=== PATIENT | female | born 1955 | race Caucasian/White ===

== ENCOUNTER 2021-12-09 10:46 | Observation (INO) | payer OTHER ==
--- NOTE | 2021-12-04 11:28 | RAD REPORT ---
EXAM DESCRIPTION: RAD - Chest Pa And Lat (2 Views) - 12/04/2021 11:19 am CLINICAL HISTORY: pre op pending knee replacement COMPARISON: No comparisons FINDINGS: Lines: None. Lungs: No evidence of edema or pneumonia. Pleural: No significant pleural effusions or pneumothorax. Cardiac: The heart size is within normal limits. Bones: No acute fractures. Remote right-sided rib fractures . Right shoulder arthroplasty. Other: IMPRESSION: No acute cardiopulmonary disease.
[2021-12-04 11:57] LABS: Absolute Lymphocytes (CBC) 3.2 K/uL (0.7-4.9); Hematocrit 43.8 % (36.0-45.0); Lymphocytes % 35.7 % (15.3-44.8); MCV 89.2 fL (80-100); MPV 7.6 fL (7.6-11.3); RBC Red Blood Cell Count 4.91 M/uL (3.86-4.86)
[2021-12-04 12:13] LABS: Albumin 3.9 g/dL (3.4-5.0); Bilirubin Total 0.3 mg/dL (0.2-1.0); Potassium 3.9 mmol/L (3.5-5.1); Protein, Total 7.7 g/dL (6.4-8.2)
[2021-12-04 12:24] LABS: Urine Bilirubin NEGATIVE (Negative); Urine Blood 2+ (Negative); Urine Clarity Clear (Clear); Urine Color Yellow (Yellow); Urine Glucose Negative (Negative); Urine Protein Negative (Negative); Urine pH 5.5 (5.0-7.0)
[2021-12-04 12:25] LABS: Urine Urobilinogen 0.2 mg/dL (0.2-1.0)
[2021-12-04 12:26] LABS: Urine Bacteria >50 /HPF (<20)
[2021-12-04 12:28] LABS: Protime INR 0.96
--- NOTE | 2021-12-04 14:30 | EKG ---
Test Date: 2021-12-04 Test Time: 11:11:42 Rd Project Manager: RAMIRO MEASUREMENT RESULTS: Intervals: Rate: 73 PA: 164 QRSD: 100 QT: 412 QTc: 453 [place]: P: 68 PA: 164 QRS: -60 T: 93 INTERPRETIVE STATEMENTS: Normal sinus rhythm Left anterior fascicular block Nonspecific ST and T wave abnormality Abnormal ECG No previous ECG available for comparison Electronically Signed On 12-04-21 14:29:48 CDT by Jewel Yates
[2021-12-08 14:04] LABS: SARS-CoV-2 Antigen Rapid Res Negative (Negative)
[2021-12-09] MEDS ORDERED: CEFAZOLIN 2 GM IN 0.9% NACL 2 GM/100 ML BAG ONE (11:00)
[2021-12-09] MEDS ORDERED: Ringers Lactate 1,000 ML IV ONE (11:00)
[2021-12-09] MEDS ORDERED: CELECOXIB 100 MG CAPSULE ONE (11:24)
[2021-12-09] MEDS ORDERED: ACETAMINOPHEN 500 MG TAB ONE (11:25)
[2021-12-09] MEDS ORDERED: Oxycodone HCl/Acetaminophen 1 TAB TAB ONE (11:25)
[2021-12-09] MEDS ORDERED: LIDOCAINE 1% MPF 5 ML VIAL ONE ×2 (12:10→12:48)
[2021-12-09] MEDS ORDERED: BUPIVACAINE 0.25% PF 10 ML VIAL ONE (12:10)
[2021-12-09] MEDS ORDERED: MIDAZOLAM HCL 2 MG/2 ML INJ ONE (12:10)
[2021-12-09] MEDS ORDERED: dexAMETHasone 10 MG/ML VIAL ONE ×2 (12:10→12:52)
[2021-12-09] MEDS ORDERED: FENTANYL CITR 100 MCG/2 ML ONE (12:10)
[2021-12-09] MEDS ORDERED: HYDROMORPHONE HCL 1 MG/ML INJ ONE (12:46)
[2021-12-09] MEDS ORDERED: TRANEXAMIC ACID 1,000 MG/10 ML VIAL IV ONE (12:47)
[2021-12-09] MEDS ORDERED: propofoL 200 MG/20 ML VIAL IV ONE (12:48)
[2021-12-09] MEDS ORDERED: KETAMINE HCL 500 MG/5 ML VIAL ONE (12:52)
[2021-12-09] MEDS ORDERED: KETOROLAC 30 MG/ML INJ ONE (12:52)
[2021-12-09] MEDS ORDERED: ONDANSETRON 4 MG/2 ML VIAL ONE (13:01)
[2021-12-09] MEDS ORDERED: HYDROCODONE/APAP 7.5/325 MG TAB PO PRN (15:22)
[2021-12-09] MEDS ORDERED: ONDANSETRON 4 MG/2 ML VIAL IV PRN (15:22)
[2021-12-09] MEDS ORDERED: DOCUSATE NA 100 MG CAP PO PRN (15:22)
--- NOTE | 2021-12-09 15:29 | P.BOP ---
Preoperative diagnosis: left severe knee djd Postoperative diagnosis: same Primary procedure: left knee TKA Estimated blood loss: 150 Anesthesia: General Complications: None Transferred to: Recovery Room Condition: Good
--- OUTSIDE RECORDS SUMMARY | 2021-12-09 16:05 | XMS REPORT | Continuity of Care Document ---
:1955 Author Organization [facility] t Address [address] [place] [address] Care Team Providers Name Role Phone Carly Owens Attending Clinician Unavailable Gilbert Robertson Attending Clinician Unavailable VALERIO PRIETO Attending Clinician Unavailable VALERIO PRIETO Admitting Clinician Unavailable Payers Payer Name Policy Type Policy Number Effective Date Expiration Date S annia [employer] MEDICARE HMO [id number] 2019 POS PPO 00:00:00 AETNA [facility] [id number] 2019 ACCESS 00:00:00 Problems This patient has no known problems. Allergies, Adverse Reactions, Alerts Allergy Allergy Status Severity Reaction(s) Onset Inactive Treating Comm ents Source Name Type Date Date Clinician NO KNOWN Allergy Active [facility] Medications Ordered Filled Start Stop Current Ordering Indication Dosage Frequency Signature Comments Components Source Medication Medication Date Date Medication? Clinician (SIG) Name Name Gabapentin Gabapentin Yes Qian 1 tablet Common 7-13 Millender as needed Spiri t 00:00: for pain - [facility] 00 [facility] Diclofenac Diclofenac 2020- No Qian 1 tablet Common Sodium Sodium 7-13 04-09 Millender as needed Spirit 00:00: 00:00 for pain; - [facility] 00 :00 take with [facility] Levothyroxi Levothyroxi Yes Qian 1 tablet Common ne Sodium ne Sodium 809 Millender on an Spirit 00:00: empty - [facility] 00 stomach in [facility] Meclizine Meclizine Yes Qian 1 tablet Common HCl HCl 808 Millender as needed Spiri t 00:00: for - [facility] 00 dizziness [facility] Gabapentin Gabapentin Yes Qian 1 tablet Common 4-24 Millender Spirit 00:00: - [facility] 00 [facility] [place] 3 [place] 3 Yes Qian 1 capsule Com mon Millender [facility] Fish Oil Fish Oil Yes Qian (otc) 1 Com mon Millender capsule [facility] Crestor Crestor Yes Qian 1 tablet Comm on Millender in evening Spir it (for high - [facility] cholestero St l/triglyce [facility] Vital Signs Vital Name Observation Time Observation Value Comments Source HEIGHT 2020-04-15 06:55:00 162.6 cm WEIGHT 2020-04-15 06:55:00 117.1 kg HEIGHT 2020-04-12 09:25:00 162.6 cm WEIGHT 2020-04-12 09:25:00 120.657 kg HEIGHT 2020-04-15 06:55:00 162.6 cm WEIGHT 2020-04-15 06:55:00 117.1 kg HEIGHT 2020-04-12 09:25:00 162.6 cm WEIGHT 2020-04-12 09:25:00 120.657 kg Procedures This patient has no known procedures. Encounters Start End Encounter Admission Attending Care Care Encounter Source Date/Time Date/Time Type Type Clinicians Facility Department ID 2021-12-09 Outpatient Carly Owens [facility] [id number] Common 12:13:00 [facility] 2021-09-18 Outpatient Carly Owens [facility] [id number] Common 09:09:00 [facility] 2021-08-25 Outpatient Carly Owens [facility] [id number] Common 11:27:01 [facility] 2021-05-29 Outpatient Carly Owens [facility] [id number] Common 10:35:00 [facility] 2021-05-21 Outpatient Owens, Na STLMLC STLMLC [id number] Common 14:38:51 [facility] 2021-05-21 Outpatient Owens, Na STLMLC STLMLC [id number] Common 14:02:42 [id number] [facility] 2021-05-21 Outpatient Owens, Na STLMLC STLMLC [id number] 2 Common 13:26:06 [id number] [facility] 2021-05-21 Outpatient Owens, Na STLMLC STLMLC [id number] Common 13:18:07 [id number] [facility] 2021-05-21 Outpatient STLMLC STLMLC [id number] Common 13:17:39 [id number] [facility] 2021-05-21 Outpatient STLMLC STLMLC [id number] Common 12:17:54 [id number] [facility] 2021-05-21 Outpatient Marcelo, Kin STLMLC STLMLC [id number] Common 12:06:49 [id number] [facility] 2021-05-21 Outpatient Marcelo, Kin STLMLC STLMLC [id number] Common 12:01:35 [id number] [facility] 2021-05-21 Outpatient Marcelo, Kin STLMLC STLMLC [id number] Common 11:59:51 [id number] [facility] 2021-01-29 Inpatient CONNER, [facility] Surgery [id number] [facility] 05:54:13 VALERIO 2021-12-04 2021-12-04 ambulatory STLMLC STLMLC [id number] Common 00:00:00 00:00:00 [facility] 2021-11-06 2021-11-06 ambulatory STLMLC STLMLC [id number] Common 00:00:00 00:00:00 [facility] 2021-10-22 2021-10-22 ambulatory STLMLC STLMLC [id number] Common 00:00:00 00:00:00 [facility] 2021-10-22 2021-10-22 ambulatory STLMLC STLMLC [id number] Common 00:00:00 00:00:00 [facility] 2021-10-15 2021-10-15 ambulatory STLMLC STLMLC [id number] Common 00:00:00 00:00:00 [facility] 2021-07-17 2021-07-17 ambulatory STLMLC STLMLC [id number] Common 00:00:00 00:00:00 [facility] 2021-06-30 2021-06-30 ambulatory STLMLC STLMLC [id number] Common 00:00:00 00:00:00 [facility] 2021-06-04 2021-06-04 ambulatory STLMLC STLMLC [id number] Common 00:00:00 00:00:00 [facility] 2021-05-30 2021-05-30 ambulatory STLMLC STLMLC [id number] Common 00:00:00 00:00:00 [facility] 2021-05-29 2021-05-29 ambulatory STLMLC STLMLC [id number] Common 00:00:00 00:00:00 [facility] 2021-05-20 2021-05-20 ambulatory STLMLC STLMLC [id number] Common 00:00:00 00:00:00 [facility] 2021-02-14 2021-02-14 Outpatient STLMLC STLMLC [id number] Common 00:00:00 00:00:00 [facility] 2020-11-07 2020-11-07 Outpatient STLMLC STLMLC [id number] Common 00:00:00 00:00:00 [facility] 2020-10-18 2020-10-18 Outpatient STLMLC STLMLC [id number] Common 00:00:00 00:00:00 [facility] 2020-10-15 2020-10-15 Outpatient STLMLC STLMLC [id number] Common 00:00:00 00:00:00 [facility] 2020-04-23 2020-04-23 Outpatient STLMLC STLMLC [id number] Common 00:00:00 00:00:00 [facility] 2020-04-12 2020-04-12 Outpatient EL [facility]H SLEH [id number] [facility] 00:00:00 00:00:00 2020-04-09 2020-04-09 Outpatient STLMLC STLMLC [id number] Common 00:00:00 00:00:00 [facility] 2020-04-01 2020-04-01 Outpatient STLMLC STLMLC [id number] Common 00:00:00 00:00:00 [facility] 2020-03-18 2020-03-18 Outpatient STLMLC STLMLC [id number] Common 00:00:00 00:00:00 [facility] 2020-02-28 2020-02-28 Outpatient STLMLC STLMLC [id number] Common 00:00:00 00:00:00 [facility] 2020-01-24 2020-01-24 Outpatient STLMLC STLMLC [id number] Common 00:00:00 00:00:00 [facility] 2019-11-02 2019-11-02 [facility] [id number] Common 10:40:00 10:40:00 [facility] [address] [facility] 2019-04-13 2019-04-13 [facility] [id number] Common 10:45:00 10:45:00 [facility] [address] [facility] 2018-10-17 2018-10-17 [facility] [id number] Common 17:28:00 17:28:00 t [facility] [address] [facility] 2018-10-17 2018-10-17 [facility] [id number] Common 09:40:00 09:40:00 t [facility] [address] [facility] 2018-05-06 2018-05-06 [facility] [id number] Common 11:30:00 11:30:00 t [facility] it [address] [facility] 2018-02-04 2018-02-04 [facility] [id number] Common 11:15:00 11:15:00 t [facility] [address] [facility] Results Test Description Test Time Test Comments Results Result Comments Source BASIC METABOLIC PANEL 2020-04-18 07:46:00 Test Item Value Reference Range Interpretation Comme nts SODIUM (BEAKER) (test code 130 meq/L 136-145 L = 381) POTASSIUM (BEAKER) (test 3.6 meq/L 3.5-5.1 code = 379) CHLORIDE (BEAKER) (test 100 meq/L 98-107 code = 382) CO2 (BEAKER) (test code = 27 meq/L 22-29 355) BLOOD UREA NITROGEN 10 mg/dL 7-21 (BEAKER) (test code = 354) CREATININE (BEAKER) (test 0.55 mg/dL 0.57-1.25 L code = 358) GLUCOSE RANDOM (BEAKER) 116 mg/dL 70-105 H (test code = 652) CALCIUM (BEAKER) (test 8.1 mg/dL 8.4-10.2 L code = 697) EGFR (BEAKER) (test code = 111 mL/min/1.73 sq m ESTIMATED GFR IS NOT 1092) ACCURATE CRE ATININE CLEARANCE IN DE EDICTING GLOMERULAR FILT RATION RATE. ESTIMATED GFR IS NOT APPLICABLE FOR DIALYSIS PATIENTS. HEMOGLOBIN AND [id number] 17:03:00 Test Item Value Reference Range Interpretation Comments HEMOGLOBIN (BEAKER) (test code = 13.9 GM/DL 11.2-15.7 410) HEMATOCRIT (BEAKER) (test code = 42.6 % 34.1-44.9 411) BASIC METABOLIC [id number] 14:00:00 Test Item Value Reference Range Interpretation Comments SODIUM (BEAKER) 121 meq/L 136-145 L (test code = 381) POTASSIUM (BEAKER) 3.6 meq/L 3.5-5.1 (test code = 379) CHLORIDE (BEAKER) 90 meq/L 98-107 L (test code = 382) CO2 (BEAKER) (test 25 meq/L 22-29 code = 355) BLOOD UREA NITROGEN 14 mg/dL 7-21 (BEAKER) (test code = 354) CREATININE (BEAKER) 0.72 mg/dL 0.57-1.25 (test code = 358) GLUCOSE RANDOM 120 mg/dL 70-105 H (BEAKER) (test code = 652) CALCIUM (BEAKER) 8.2 mg/dL 8.4-10.2 L (test code = 697) EGFR (BEAKER) (test 81 mL/min/1.73 ESTIMA DARIUSZ GFR IS code = 1092) sq m NOT ACCURATE CREATININE CLEARANCE IN PREDICTING GLOMERULAR FILTRATION RATE . ESTIMATED GFR I S NOT APPLICABLE FOR DIALYSIS PATIEN TS. HEMOGLOBIN AND [id number] 13:49:00 Test Item Value Reference Range Interpretation Comments HEMOGLOBIN (BEAKER) (test code = 12.1 GM/DL 11.2-15.7 410) HEMATOCRIT (BEAKER) (test code = 35.2 % 34.1-44.9 411) BASIC METABOLIC [id number] 06:52:00 Test Item Value Reference Range Interpretation Comments SODIUM (BEAKER) 122 meq/L 136-145 L (test code = 381) POTASSIUM (BEAKER) 3.6 meq/L 3.5-5.1 (test code = 379) CHLORIDE (BEAKER) 93 meq/L 98-107 L (test code = 382) CO2 (BEAKER) (test 26 meq/L 22-29 code = 355) BLOOD UREA NITROGEN 17 mg/dL 7-21 (BEAKER) (test code = 354) CREATININE (BEAKER) 0.87 mg/dL 0.57-1.25 (test code = 358) GLUCOSE RANDOM 98 mg/dL 70-105 (BEAKER) (test code = 652) CALCIUM (BEAKER) 8.1 mg/dL 8.4-10.2 L (test code = 697) EGFR (BEAKER) (test 65 mL/min/1.73 ESTIMA DARIUSZ GFR IS code = 1092) sq m NOT ACCURATE CREATININE CLEARANCE IN PREDICTING GLOMERULAR FILTRATION RATE . ESTIMATED GFR I S NOT APPLICABLE FOR DIALYSIS PATIEN TS. HEMOGLOBIN AND [id number] 06:42:00 Test Item Value Reference Range Interpretation Comments HEMOGLOBIN (BEAKER) (test code = 11.0 GM/DL 11.2-15.7 L 410) HEMATOCRIT (BEAKER) (test code = 32.7 % 34.1-44.9 L 411) BASIC METABOLIC [id number] 13:38:00 Test Item Value Reference Range Interpretation Comments SODIUM (BEAKER) 126 meq/L 136-145 L (test code = 381) POTASSIUM (BEAKER) 4.4 meq/L 3.5-5.1 (test code = 379) CHLORIDE (BEAKER) 96 meq/L 98-107 L (test code = 382) CO2 (BEAKER) (test 25 meq/L 22-29 code = 355) BLOOD UREA NITROGEN 19 mg/dL 7-21 (BEAKER) (test code = 354) CREATININE (BEAKER) 1.33 mg/dL 0.57-1.25 H (test code = 358) GLUCOSE RANDOM 121 mg/dL 70-105 H (BEAKER) (test code = 652) CALCIUM (BEAKER) 8.2 mg/dL 8.4-10.2 L (test code = 697) EGFR (BEAKER) (test 40 mL/min/1.73 ESTIMA DARIUSZ GFR IS code = 1092) sq m NOT ACCURATE CREATININE CLEARANCE IN PREDICTING GLOMERULAR FILTRATION RATE . ESTIMATED GFR I S NOT APPLICABLE FOR DIALYSIS PATIEN TS. BASIC METABOLIC [id number] 06:04:00 Test Item Value Reference Range Interpretation Comments SODIUM (BEAKER) 132 meq/L 136-145 L (test code = 381) POTASSIUM (BEAKER) 5.3 meq/L 3.5-5.1 H Specimen slightly (test code = 379) hemolyzed CHLORIDE (BEAKER) 102 meq/L 98-107 (test code = 382) CO2 (BEAKER) (test 26 meq/L 22-29 code = 355) BLOOD UREA NITROGEN 16 mg/dL 7-21 (BEAKER) (test code = 354) CREATININE (BEAKER) 1.54 mg/dL 0.57-1.25 H Specimen slightly (test code = 358) hemolyzed GLUCOSE RANDOM 124 mg/dL 70-105 H (BEAKER) (test code = 652) CALCIUM (BEAKER) 8.1 mg/dL 8.4-10.2 L (test code = 697) EGFR (BEAKER) (test 34 mL/min/1.73 ESTIMA DARIUSZ GFR IS code = 1092) sq m NOT ACCURATE CREATININE CLEARANCE IN PREDICTING GLOMERULAR FILTRATION RATE . ESTIMATED GFR I S NOT APPLICABLE FOR DIALYSIS PATIEN TS. BASIC METABOLIC [id number] 04:00:00 Test Item Value Reference Range Interpretation Comments SODIUM (BEAKER) 133 meq/L 136-145 L (test code = 381) POTASSIUM (BEAKER) 5.6 meq/L 3.5-5.1 H (test code = 379) CHLORIDE (BEAKER) 104 meq/L 98-107 (test code = 382) CO2 (BEAKER) (test 25 meq/L 22-29 code = 355) BLOOD UREA NITROGEN 14 mg/dL 7-21 (BEAKER) (test code = 354) CREATININE (BEAKER) 1.54 mg/dL 0.57-1.25 H (test code = 358) GLUCOSE RANDOM 132 mg/dL 70-105 H (BEAKER) (test code = 652) CALCIUM (BEAKER) 8.4 mg/dL 8.4-10.2 (test code = 697) EGFR (BEAKER) (test 34 mL/min/1.73 ESTIMA DARIUSZ GFR IS code = 1092) sq m NOT ACCURATE CREATININE CLEARANCE IN PREDICTING GLOMERULAR FILTRATION RATE . ESTIMATED GFR I S NOT APPLICABLE FOR DIALYSIS PATIEN TS. BASIC METABOLIC [id number] 16:16:00 Test Item Value Reference Range Interpretation Comments SODIUM (BEAKER) 131 meq/L 136-145 L (test code = 381) POTASSIUM (BEAKER) 4.4 meq/L 3.5-5.1 Specimen slightly (test code = 379) hemolyzed CHLORIDE (BEAKER) 101 meq/L 98-107 (test code = 382) CO2 (BEAKER) (test 25 meq/L 22-29 code = 355) BLOOD UREA NITROGEN 10 mg/dL 7-21 (BEAKER) (test code = 354) CREATININE (BEAKER) 0.77 mg/dL 0.57-1.25 Specimen slightly (test code = 358) hemolyzed GLUCOSE RANDOM 139 mg/dL 70-105 H (BEAKER) (test code = 652) CALCIUM (BEAKER) 8.7 mg/dL 8.4-10.2 (test code = 697) EGFR (BEAKER) (test 75 mL/min/1.73 ESTIMA DARIUSZ GFR IS code = 1092) sq m NOT ACCURATE CREATININE CLEARANCE IN PREDICTING GLOMERULAR FILTRATION RATE . ESTIMATED GFR I S NOT APPLICABLE FOR DIALYSIS PATIEN TS. RAD, SHOULDER, COMPLETE (MIN 2 VIEWS), [id number] 15:57:00True AP of joint. 30 rotated toward the shoulder with the beam directed from the midline if the patient is supine, keep the patient in a sling during the X-rayReason for exam:- >Postop EvalShould this be performed at the bedside?->Yes [facility] 1955 Sex: FFINAL REPORT Exam: Right shoulder 2 views History: pain Comparison: None. Findings: See impression Impression: Postoperative radiograph of a right total shoulder arthroplasty without complication. Signed: Mamadou Rios MDReport Verified Date/Time: 04/15/2020 15:57:09 HEMOGLOBIN AND [id number] 15:10:00 Test Item Value Reference Range Interpretation Comments HEMOGLOBIN (BEAKER) (test code = 14.2 GM/DL 11.2-15.7 410) HEMATOCRIT (BEAKER) (test code = 42.9 % 34.1-44.9 411)
[2021-12-09 17:38] VITALS: BMI 46.5
[2021-12-09] MEDS: CEFAZOLIN 1 GM in NA CHLORIDE 0.9% 50 ML IVPB SCH (18:21)
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
[2021-12-10] MEDS: CEFAZOLIN 1 GM in NA CHLORIDE 0.9% 50 ML IVPB SCH ×2 (00:13→09:39)
[2021-12-10 04:24] LABS: Hematocrit 36.2 % (36.0-45.0)
--- NOTE | 2021-12-10 04:52 | OP ---
Date of Procedure: 12/09/2021 Surgeon: Jay Johns MD Preoperative Diagnosis: Severe left knee arthritis. Postoperative Diagnosis: Severe left knee arthritis. Procedure: Left total knee arthroplasty using the Biomet Vanguard System, PS. Estimated Blood Loss: 250 cc. Complications: There were no complications. Indication For Operation: Ms. Mueller is a 66-year-old female who unfortunately has been having great difficulty with her left knee for quite some time. This persisted despite all conservative measures. She arrived to see me with severe complaints of left knee pain. She has obvious severe arthritis i n her knee by x-ray and risks, benefits, and alternatives to total knee arthroplasty had been discuss ed. It was also discussed that she is somewhat of a large individual, and the chance of complication s are higher; however, I do not really think there is any realistic chance, given that she would be a ble to decrease this in any efficient manner and she says she understands things as presented and wis hes to proceed. Description Of Procedure: The patient was taken to the operating room and placed in supine position. General anesthesia was obtained by staff. Following this, a well-padded tourniquet was placed on s uperior left thigh. Left lower extremity was then prepped and draped in the usual sterile fashion fo r procedure. After this, the leg was then elevated and gently exsanguinated. The tourniquet was tomas sed. An incision was made simply through skin only. Meticulous hemostasis being maintained using Clint vie electrocautery. This was somewhat longer incision than normal because of the patient's habitus. This was taken down carefully through the adipose tissue until the extensor mechanism could be seen. The bursa was quite thickened and large over the patellar tendon. This was gently excised. After this, a standard medial patellar arthrotomy was then performed. The medial meniscus and anterior cru ciate ligament were debrided. The knee was then brought down to extension and the knee was flexed. He has an extremely large osteophyte at the superior aspect of the patella, which was removed. The p orestes was examined. She was found to have a very dished out patella laterally. However, medially s till had fairly good bone, although it was very small amount and the patella itself actually appeared to be quite thin. Attention was continued with removal of the lateral meniscus and the femur was ex posed. An intramedullary alignment guide was then placed and sized out to a size 57.5. It was then cut in standard fashion. After this, the tibia was then cut in standard fashion with all osteophytes and bone fragments being removed. The wound was irrigated and tibia was then sized. The trial femu r and tibia with a size 10 polyethylene were then placed, was brought out to full extension and found to come to a little bit of hyperextension and maybe a little loose medial and lateral. There was a chance we may need a 12; however, at this time the tendon was retained. Attention was then turned to patella, was calipered to a width of 18, which is quite thin. Decided to resurface this down to a s ize 12 with the smallest patellar button, selected these 3 drill holes, were placed. It does appear to fit flat with the exception of very far lateral and may be lifted off slightly because of the dish ing of the patella; however, is on very good bone medially with all 3 pegs being in solid bone. The knee was then brought through a range of flexion and extension. The patella appears quite well. The provisional components were then removed and the box was cut followed by placement of the bone plug and punching of the tibia with slight external rotation being at the medial third of the tibial tuber valentino. After the trialing was done, the trials were removed and the box was cut in standard fashion. After this, the bone plug was then placed and tibia was punched. All bony surfaces were then prepped for cementation. Cementation was done in standard fashion, removing any unsupported cement of all c omponents with the exception of the tibial polyethylene. The cement was allowed to dry and then was brought through full range of motion with good range of motion and appeared to be balanced. It did a ppear to be a little loose medial and lateral and got a slight amount of hyperextension. Therefore, it was trialed with size 12 and the size 12 actually appeared to have a much better feel, with regard to stability. Decision was made to go with the 12 and the final polyethylene was then placed with a locking bar. The wound was copiously irrigated, brought through range of motion. Patella glides ex cellently does not appear to catch at the superior flange and otherwise, it appears to be balanced in both flexion and extension. The extensor mechanism was then repaired using heavy Ethibond sutures, followed by closure of the skin with Vicryl and brenna. The patient was then placed in a well-padde d sterile dressing, awakened, and taken to recovery room in good condition. No complications. /LIBBY Voice ID: [id number] Report ID: [id number]
[2021-12-10] MEDS: ENOXAPARIN 30 MG/0.3 ML SQ SCH ×2 (05:21→09:39)
--- NOTE | 2021-12-10 06:19 | P.PN ---
Date of Service: 12/10/21 Subjective: feels ok this morning, no chset pain, no shortness of breath pain tolerable ROS: 10 point ROS as noted above, otherwise negative Physical Exam: Gen: NAD, AOx3 HEENT: normal conjunctiva, sclera anicteric CV: regular rate & rhythm, no edema Pulm: non-labored respirations on room air Abd: soft, non-tender, non-distended MSK: surgical dressing c//i Neuro: normal speech, normal affect, moves all extremities vitals reviewed Problem List Severe osteoarthritis of left knee status post left knee replacement 12/09/2021 Chronic pain continue pain management per ortho PT consulted Social servicecs consulted resume home meds patient seems to be doing well recent pre-op UA concerning for UTI patient with history of UTIs, but denies any specific compaints at this time. h/o choronic pain - adjust meds as needed ok to discharge home once cleared by Ortho Time Spent Managing Pts Care (In Minutes): 35
[2021-12-10 11:37] VITALS: O2SAT 92
[2021-12-10 12:01] VITALS: BP 148/75; TEMP 98
== END 2021-12-10 14:21 | disposition home health service (06) ==
LOC: OR 10:46 → 4TH 15:22
PROVIDERS: ADMIT Orthopaedic Surgery; ATTEND Orthopaedic Surgery
PROC: 0SRD069 Replacement of Left Knee Joint with Oxidized Zirconium on Polyethylene Synthetic Substitute, Cemented, Open Approach (ICD-10-PCS; principal; 2021-12-09 13:30)
DX: M17.12 Unilateral primary osteoarthritis, left knee (principal); E03.9 Hypothyroidism, unspecified; G89.4 Chronic pain syndrome; E78.5 Hyperlipidemia, unspecified; E78.00 Pure hypercholesterolemia, unspecified; G47.33 Obstructive sleep apnea (adult) (pediatric); M54.50 Low back pain, unspecified; J30.9 Allergic rhinitis, unspecified; H54.62 Unqualified visual loss, left eye, normal vision right eye; G43.909 Migraine, unspecified, not intractable, without status migrainosus; R29.6 Repeated falls; E66.01 Morbid (severe) obesity due to excess calories; Z68.42 Body mass index [BMI] 45.0-49.9, adult; Z20.822 Contact with and (suspected) exposure to COVID-19; Z79.899 Other long term (current) drug therapy; Z96.649 Presence of unspecified artificial hip joint; Z96.619 Presence of unspecified artificial shoulder joint; Z87.440 Personal history of urinary (tract) infections; Z90.710 Acquired absence of both cervix and uterus; Z98.890 Other specified postprocedural states; Z80.3 Family history of malignant neoplasm of breast; Z82.0 Family history of epilepsy and other diseases of the nervous system
CPT/HCPCS: 27447; 93005; 87088; 85025; 81001; 87086; 36415 ×3; 86900; 86850; 85610; 86901; 88304; 88311; 85730; 87077; 87186; 85018; 85014; 80053; 71046; 97110; 97116; 97139; 97161; 97530; 94010; 87811; G0379; J2704; J1650 ×2; J2250; J3010; J1100 ×2; J1170; J0690 ×4; G0378 ×3; J7120; J2405